=== PATIENT | male | born 2000 | race African-American/Black ===

== ENCOUNTER 2018-05-15 12:41 | Emergency (ER) | payer SELFPAY ==
[~2018-05-15] VITALS: Ht 180.3 cm; Wt 77.1 kg
[2018-05-15 12:48] VITALS: BP 150/82
[2018-05-15 14:18] LABS: Basophils # (auto) 0 uL; Basophils % (auto) 0.3 % (0.0-2.0); Eosinophils # (auto) 0.1 uL; Eosinophils % (auto) 0.6 % (0.0-7.0); Hematocrit 49.6 % (41.0-53.0); Hemoglobin 17.3 g/dL (13.5-17.5); Lymphocytes # (auto) 1.7 uL; Lymphocytes % (auto) 16.9 % (10.0-50.0); Mean Corpuscular Hemoglobin 32.9 pg (28.0-32.0); Mean Corpuscular Hgb Conc. 34.9 g/dL (32.0-36.0); Mean Corpuscular Volume 94.2 fL (80.0-100.0); Monocytes # (auto) 0.7 uL; Monocytes % (auto) 6.6 % (0.0-12.0); Neutrophils # (auto) 7.5 uL; Neutrophils % (auto) 75.6 % (37.0-80.0); Nucleated Red Blood Cells % 0.2 %; Platelet Count (auto) 242 10^3/uL (140-450); Red Blood Cells 5.27 10^6/uL (4.5-5.90); Red Cell Distribution Width 13.2 % (11.8-14.3); White Blood Cell 9.9 10^3/uL (4.4-10.8)
[2018-05-15 14:29] LABS: Anion Gap 7 (5-15); Blood Urea Nitrogen 9 mg/dL (7-18); Calcium 8.7 mg/dL (8.5-10.1); Carbon Dioxide 23 mmol/L (21-32); Chloride 110 mmol/L (98-107); Potassium 3.8 mmol/L (3.5-5.1); Sodium 140 mmol/L (136-145)
[2018-05-15 14:30] LABS: Salicylate < 1.7 mg/dL (2.8-20.0)
[2018-05-15 14:32] LABS: Alanine Aminotransferase 19 U/L (16-61); Aspartate Aminotransferase 18 U/L (15-37); BUN/Creatinine Ratio 9.8; Blood Alcohol < 3.0 mg/dL (0-5); GFR African American 135 mL/min; GFR Non-African American 111 mL/min; Glucose 88 mg/dL (74-106)
[2018-05-15 14:34] LABS: Alkaline Phosphatase 77 U/L (45-117); Bilirubin, Total 1.4 mg/dL (0.2-1.0); Total Protein 7.2 g/dL (6.4-8.2)
[2018-05-15 14:56] LABS: Acetaminophen < 2.0 ug/mL (10-30)
== END 2018-05-15 17:37 | disposition left against medical advice (07) ==
LOC: EDBD 12:41 → ER 12:45
DX: R45.851 Suicidal ideations (principal); F19.10 Other psychoactive substance abuse, uncomplicated; F41.9 Anxiety disorder, unspecified; F32.9 Major depressive disorder, single episode, unspecified; F17.210 Nicotine dependence, cigarettes, uncomplicated; F12.90 Cannabis use, unspecified, uncomplicated
CPT/HCPCS: 36415; 80053; 80320; 80329; 85025